=== PATIENT | female | born 1960 | race Caucasian/White ===

== ENCOUNTER 2017-12-12 02:43 | Emergency (ER) | payer OTHER ==
[~2017-12-12] VITALS: Ht 160 cm; Wt 65.5 kg
[2017-12-12 02:49] VITALS: Ht 160 cm; Wt 65.5 kg
[2017-12-12 03:02] VITALS: BP 128/78
== END 2017-12-12 03:02 | disposition home or self-care (01) ==
LOC: ED 02:43
DX: S50.362A Insect bite (nonvenomous) of left elbow, initial encounter (principal); W57.XXXA Bitten or stung by nonvenomous insect and other nonvenomous arthropods, initial encounter; Y93.89 Activity, other specified; Y92.89 Other specified places as the place of occurrence of the external cause; Y99.8 Other external cause status

== ENCOUNTER 2018-07-02 19:50 | Emergency (ER) | payer OTHER | END 2018-07-02 20:27 | disposition left against medical advice (07) | LOC: ED 19:50 | DX: Z53.21 Procedure and treatment not carried out due to patient leaving prior to being seen by health care provider (principal) ==

== ENCOUNTER 2019-03-30 10:24 | Emergency (ER) | payer OTHER ==
[~2019-03-30] VITALS: Ht 162.6 cm; Wt 63.0 kg
[2019-03-30 10:31] VITALS: Ht 162.6 cm; Wt 63.0 kg
[2019-03-30 11:52] VITALS: BP 105/70
== END 2019-03-30 11:52 | disposition home or self-care (01) ==
LOC: ED 10:24
DX: J18.8 Other pneumonia, unspecified organism (principal); F17.210 Nicotine dependence, cigarettes, uncomplicated
CPT/HCPCS: Q0092